=== PATIENT | female | born 1970 | race Two or more races ===

== ENCOUNTER 2017-04-01 11:40 | Inpatient (IN) | payer OTHER ==
[~2017-04-01] VITALS: Ht 157.5 cm; Wt 79.4 kg
[2017-04-01] MEDS ORDERED: HYDROCODONE/APAP 5/325MG 1 EACH TABLET ONE (12:43)
[2017-04-01] MEDS ORDERED: PHENYTOIN EXTENDED RELEASE 100 MG CAPSULE PO ONE ×2 (12:43→13:00)
[2017-04-01] MEDS ORDERED: LEVETIRACETAM (250 MG) 250 MG TABLET PO ONE ×2 (12:43→13:00)
[2017-04-01] MEDS ORDERED: HYDROCODONE/APAP 5/325MG 1 EACH TABLET PO ONE (13:00)
[2017-04-01] MEDS ORDERED: HYDR-552 PO (13:19)
[2017-04-01] MEDS ORDERED: DOCU-25 PO (13:19)
[2017-04-01] MEDS ORDERED: ARIP5TAB4 PO (13:19)
[2017-04-01] MEDS ORDERED: ENOX40DI SQ (13:19)
[2017-04-01] MEDS ORDERED: PHEN100C4 PO (13:19)
[2017-04-01] MEDS ORDERED: MULT-213 PO (13:19)
[2017-04-01] MEDS ORDERED: BISA10SU8 RC (13:19)
[2017-04-01] MEDS ORDERED: LEVE500T9 PO (13:19)
[2017-04-01] MEDS ORDERED: ASCO500T9 PO (13:19)
[2017-04-01] MEDS ORDERED: ACET-868 PO (13:19)
[2017-04-01] MEDS ORDERED: AMIN30LI2 PO (13:19)
[2017-04-01] MEDS ORDERED: CHOL200026 PO (13:19)
--- NOTE | 2017-04-01 13:32 | NUR ---
report given to stephan alfaro
[2017-04-01 13:50] VITALS: BP 93/55
--- NOTE | 2017-04-01 13:50 | NUR ---
RN NOTES RECEIVED PT FROM ER IN ROOM 119-2, PT IS A/Ox4, RESPIRATION EVEN AND UNLABORED, ON RA , NO DISTRESS NOTED AT THIS TIME , L FOOT IV SITE G 18 CDI, NO MOVEMENT NOTED ON ROSA MARIA.LOWER EXTREMITIES , SR UP x3, CALL LIGHT WITHIN EASY REACH , VSS STABLE , SACRAL REDNESS NOTED, WOUND CONSULT ORDERED, SKIN PHOTO TAKEN, CONTINUE TO MONITOR CLOSELY .
[2017-04-01 14:00] VITALS: BP 93/55
[2017-04-01] MEDS ORDERED: BISACODYL SUPP (10 MG) 10 MG/SUPP.RECT SUPP.RECT RC PRN (16:30)
[2017-04-01] MEDS ORDERED: MAGNESIUM HYDROXIDE 30 ML UDC PO PRN (16:30)
[2017-04-01] MEDS ORDERED: HYDROCODONE/APAP 5/325MG 1 EACH TABLET PO PRN (16:30)
[2017-04-01] MEDS ORDERED: MAG HYDROX/AL HYDROX/SIMETH 30 ML UDC PO PRN (16:30)
[2017-04-01] MEDS ORDERED: ONDANSETRON HCL/PF 4 MG/2 ML VIAL IVP PRN (16:30)
[2017-04-01] MEDS ORDERED: Z GUARD REMEDY 2 OZ OINT TP PRN (16:30)
[2017-04-01] MEDS ORDERED: ACETAMINOPHEN 325 MG TABLET PO PRN ×2 (16:30)
[2017-04-01] MEDS: ENOXAPARIN SODIUM 40 MG/0.4 ML DISP.SYRIN SQ SCH (16:57)
[2017-04-01] MEDS: PHENYTOIN EXTENDED RELEASE 100 MG CAPSULE PO SCH (16:59)
[2017-04-01] MEDS: DOCUSATE SODIUM 100 MG CAPSULE PO SCH (16:59)
[2017-04-01] MEDS: IV NS 0.9% 1,000 ML IV PRN (17:00)
--- NOTE | 2017-04-01 18:51 | NUR ---
RN NOTES PT STABLE , NO DISTRESS NOTE, WILL ENDORSE TO CAREER PLACEMENT SPECIALIST NURSE FOR RUPAL,
[2017-04-01 20:00] VITALS: BP 87/62
[2017-04-01] MEDS: LEVETIRACETAM (250 MG) 250 MG TABLET PO SCH (21:54)
[2017-04-01] MEDS: ZOLPIDEM TARTRATE 5 MG TABLET PO PRN (21:55)
[2017-04-01] MEDS: PROSOURCE / PROSTAT (PYXIS) 30 ML UDC PO SCH (21:55)
[2017-04-01] MEDS ORDERED: DOCUSATE SODIUM 100 MG CAPSULE PO SCH (22:00)
[2017-04-02 04:00] VITALS: BP 80/42
[2017-04-02] MEDS: IV NS 0.9% 1,000 ML IV PRN ×2 (04:11→23:31)
[2017-04-02 07:05] LABS: BASOPHILS % (AUTO) 0.4 % (0.0-2.0); EOSINOPHILS # (AUTO) 0.2 /CMM (0.0-0.7); EOSINOPHILS % (AUTO) 4.1 % (0.0-6.0); HEMATOCRIT 32 % (33-45); HEMOGLOBIN 10.8 g/dL (11.5-14.8); LYMPHOCYTES % (AUTO) 47.1 % (20.0-44.0); MEAN CORPUSCULAR HEMOGLOBIN 32 PG (26.0-33.0); MEAN CORPUSCULAR HGB CONC 34 g/dl (31.0-36.0); MEAN CORPUSCULAR VOLUME 94 fL (82-100); MONOCYTES # (AUTO) 0.3 /CMM (0.1-1.30); MONOCYTES % (AUTO) 7.4 % (2.0-12.0); NEUTROPHILS # (AUTO) 1.7 /CMM (1.8-8.9); PLATELET COUNT (AUTO) 182 /CMM (150-450); RDW COEFFICIENT OF VARIATION 13.8 (11.5-15.0); RED BLOOD CELL COUNT(AUTO) 3.43 MIL/uL (4.0-5.2); WHITE BLOOD COUNT (AUTO) 4.2 K/uL (4.3-11.0)
[2017-04-02 07:19] LABS: ALBUMIN 2.3 g/dL (3.4-5.0); BILIRUBIN,TOTAL 0.2 mg/dL (0.2-1.0); CALCIUM, SERUM 8.1 mg/dL (8.5-10.1); CREATININE 0.4 mg/dL (0.6-1.3); PHOSPHORUS 3.6 mg/dL (2.5-4.9); POTASSIUM 3.3 mmol/L (3.5-5.1); TOTAL PROTEIN, SERUM 6.1 g/dL (6.4-8.2)
[2017-04-02 07:28] LABS: INR 1.11 (0.87-1.13); PROTHROMBIN TIME 11.6 SECS (9.5-12.7)
[2017-04-02 08:00] VITALS: BP 104/90
[2017-04-02 08:26] LABS: MAGNESIUM 1.2 mg/dL (1.8-2.4)
[2017-04-02] MEDS: CHOLECALCIFEROL 1,000 UNIT TABLET (VIT D3) PO SCH (08:37)
[2017-04-02] MEDS: LEVETIRACETAM (250 MG) 250 MG TABLET PO SCH ×2 (08:37→21:00)
[2017-04-02] MEDS: ARIPIPRAZOLE 5 MG TABLET PO SCH (08:37)
[2017-04-02] MEDS: ASCORBIC ACID 500 MG TABLET PO SCH (08:37)
[2017-04-02] MEDS: MULTIVIT, IRON, MIN NO. 8, FA 1 TAB PO SCH (08:37)
[2017-04-02] MEDS: PHENYTOIN EXTENDED RELEASE 100 MG CAPSULE PO SCH ×2 (08:38→16:12)
[2017-04-02] MEDS: DOCUSATE SODIUM 100 MG CAPSULE PO SCH ×2 (08:38→16:18)
[2017-04-02] MEDS: HYDROCODONE/APAP 5/325MG 1 EACH TABLET PO PRN ×2 (08:42→14:30)
[2017-04-02] MEDS: Magnesium 1GM/D5W 100ML PREMIX 100 ML IV SCH ×4 (10:10→13:50)
[2017-04-02] MEDS ORDERED: Magnesium 1GM/D5W 100ML PREMIX 100 ML IV SCH (10:30)
[2017-04-02] MEDS ORDERED: POTASSIUM CHLORIDE 20 MEQ TAB.PRT.SR PO ONE (10:30)
--- NOTE | 2017-04-02 14:39 | NUR ---
WOUND CARE CONSULT: PT PRESENTS WITH SCARRING TO SACRAL AREA (FRAGILE) AND SCAR TO LEFT LATERAL ANKLE, PRESENT ON ADMISSION. PT IS INCONTINENT. FIRST STEP MATTRESS ORDERED. ALL SKIN PROTECTION MEASURES IN PLACE AND DISCUSSED WITH NURSING STAFF. WILL SEE PRN. SABILLON IN AGREEMENT WITH PLAN OF CARE.
[2017-04-02] MEDS ORDERED: MINERAL OIL/PETROLATUM,WHITE 120 GM JAR TP PRN (15:00)
[2017-04-02 16:00] VITALS: BP 90/63
[2017-04-02] MEDS: ZOLPIDEM TARTRATE 5 MG TABLET PO PRN (21:01)
[2017-04-02] MEDS: PROSOURCE / PROSTAT (PYXIS) 30 ML UDC PO SCH (21:02)
[2017-04-02] MEDS: ENOXAPARIN SODIUM 40 MG/0.4 ML DISP.SYRIN SQ SCH (21:02)
[2017-04-02 21:04] LABS: APPEARANCE,URINE TURBID (CLEAR); BILIRUBIN,URINE NEGATIVE (NEGATIVE); BLOOD, URINE NEGATIVE Ery/uL (NEGATIVE); COLOR,URINE YELLOW (YELLOW); KETONES,URINE NEGATIVE (NEGATIVE); LEUKOCYTE ESTERASE ,URINE 2+ (NEGATIVE); NITRITE, URINE POSITIVE (NEGATIVE); PROTEIN,URINE NEGATIVE (NEGATIVE); UGLUCOSE NEGATIVE (NEGATIVE); UROBILINOGEN,URINE 0.2 EU/dL (0.2)
[2017-04-02 21:10] LABS: BACTERIA,URINE Many /HPF (None Seen); RBC,URINE 0-2 /HPF (0-2); SQUAMOUS EPITHELIAL CELL,UR Few /HPF (None Seen)
[2017-04-03 04:00] VITALS: BP 111/65
[2017-04-03 06:58] LABS: CALCIUM, SERUM 8.8 mg/dL (8.5-10.1); CREATININE 0.4 mg/dL (0.6-1.3); MAGNESIUM 1.4 mg/dL (1.8-2.4); PHOSPHORUS 3.5 mg/dL (2.5-4.9); POTASSIUM 3.7 mmol/L (3.5-5.1)
[2017-04-03 08:00] VITALS: BP 94/43
[2017-04-03] MEDS: ARIPIPRAZOLE 5 MG TABLET PO SCH (08:53)
[2017-04-03] MEDS: CHOLECALCIFEROL 1,000 UNIT TABLET (VIT D3) PO SCH (08:53)
[2017-04-03] MEDS: LEVETIRACETAM (250 MG) 250 MG TABLET PO SCH ×2 (08:53→21:54)
[2017-04-03] MEDS: MULTIVIT, IRON, MIN NO. 8, FA 1 TAB PO SCH (08:53)
[2017-04-03] MEDS: ASCORBIC ACID 500 MG TABLET PO SCH (08:54)
[2017-04-03] MEDS: PHENYTOIN EXTENDED RELEASE 100 MG CAPSULE PO SCH ×2 (08:54→18:32)
[2017-04-03] MEDS: DOCUSATE SODIUM 100 MG CAPSULE PO SCH ×2 (08:54→18:32)
[2017-04-03] MEDS: Magnesium 1GM/D5W 100ML PREMIX 100 ML IV SCH ×3 (14:26→18:32)
[2017-04-03] MEDS: HYDROCODONE/APAP 5/325MG 1 EACH TABLET PO PRN ×2 (14:39→21:55)
[2017-04-03 16:00] VITALS: BP_SYST 88; BP_SYST 94; BP_DIAS 43; BP_DIAS 48
--- NOTE | 2017-04-03 19:12 | NUR ---
RN CLOSING NOTE PT AAO4. NORCO FOR BACK PAIN X 1. MAG REPLETED IV. GOOD APPETITE. LFT FT 20G PATENT INFUSIN GNS @75ML. CALL LIGHT IN REACH. BED IN LOW LOCKED POSITION. WILL ENDORSE REPORT TO ROSELINE SILVA.
[2017-04-03] MEDS: ZOLPIDEM TARTRATE 5 MG TABLET PO PRN (21:54)
[2017-04-03] MEDS: PROSOURCE / PROSTAT (PYXIS) 30 ML UDC PO SCH (21:56)
[2017-04-03] MEDS: ENOXAPARIN SODIUM 40 MG/0.4 ML DISP.SYRIN SQ SCH (21:57)
[2017-04-03 23:07] VITALS: BP 116/60
[2017-04-04 04:00] VITALS: BP 78/44
--- NOTE | 2017-04-04 06:54 | NUR ---
RN CLOSING NOTE PT REMAINS IN NO ACUTE DISTRESS IN BED. PT DID NOT HAVE ANY SIGNIFICANT CHANGE IN CONDITION DURING SHIFT. ALL NEEDS MET, ALL ORDERS CARRIED OUT. WILL ENDORSE CARE TO AM RN FOR CONTINUITY OF CARE.
[2017-04-04 07:55] LABS: CALCIUM, SERUM 8.8 mg/dL (8.5-10.1); CREATININE 0.4 mg/dL (0.6-1.3); MAGNESIUM 1.7 mg/dL (1.8-2.4); POTASSIUM 3.9 mmol/L (3.5-5.1)
[2017-04-04 08:00] VITALS: BP 110/44
[2017-04-04] MEDS: LEVETIRACETAM (250 MG) 250 MG TABLET PO SCH ×2 (09:12→21:17)
[2017-04-04] MEDS: ASCORBIC ACID 500 MG TABLET PO SCH (09:12)
[2017-04-04] MEDS: PHENYTOIN EXTENDED RELEASE 100 MG CAPSULE PO SCH ×2 (09:12→17:08)
[2017-04-04] MEDS: ARIPIPRAZOLE 5 MG TABLET PO SCH (09:12)
[2017-04-04] MEDS: MULTIVIT, IRON, MIN NO. 8, FA 1 TAB PO SCH (09:13)
[2017-04-04] MEDS: DOCUSATE SODIUM 100 MG CAPSULE PO SCH ×2 (09:13→17:08)
[2017-04-04] MEDS: CHOLECALCIFEROL 1,000 UNIT TABLET (VIT D3) PO SCH (09:13)
[2017-04-04] MEDS: Magnesium 1GM/D5W 100ML PREMIX 100 ML IV SCH ×3 (12:16→13:36)
[2017-04-04 16:00] VITALS: BP 78/44
[2017-04-04 17:00] VITALS: BP 101/48
[2017-04-04] MEDS: HYDROCODONE/APAP 5/325MG 1 EACH TABLET PO PRN (17:09)
[2017-04-04] MEDS: CEFTRIAXONE 1 G in IV D5W 50 ML IV SCH (18:13)
[2017-04-04 20:00] VITALS: BP 95/51
--- NOTE | 2017-04-04 20:00 | NUR ---
RN NOTES RECEIVED PATIENT AWAKE IN BED WITH NO DISTRESS NOTED. BREATHING EVEN AND UNLABORED. ON ROOM AIR WITH O2SAT OF 97%. ALERT AND ORIENTED. VERBALLY ABLE TO COMMUNICATE NEEDS. VITAL SIGNS WNL. WILL CONTINUE TO MONITOR.
[2017-04-04] MEDS: IV NS 0.9% 1,000 ML IV PRN (21:16)
[2017-04-04] MEDS: ENOXAPARIN SODIUM 40 MG/0.4 ML DISP.SYRIN SQ SCH (21:17)
[2017-04-04] MEDS: PROSOURCE / PROSTAT (PYXIS) 30 ML UDC PO SCH (21:18)
[2017-04-04] MEDS: ZOLPIDEM TARTRATE 5 MG TABLET PO PRN (21:25)
[2017-04-05 04:00] VITALS: BP 112/66
--- NOTE | 2017-04-05 07:30 | NUR ---
RN OPENING NOTES REPORT RECV'D FROM ROSELINE RN. PT AAO4. HOB ELEVATED. HERE FOR RESP DISTRESS SECONDARY TO FIRES. PARAPLEGIA. L ANKLE 20G PIV NS RUNNING @75ML/HR. CEFTRIAXONE FOR UTI. AWAITING PLACEMENT. CALL LIGHT IN REACH. BED IN LOW LOCKED POSITION. WILL CONT TO MONITOR.
[2017-04-05 08:00] VITALS: BP_SYST 131; BP_SYST 95; BP_DIAS 51; BP_DIAS 83
[2017-04-05] MEDS: LEVETIRACETAM (250 MG) 250 MG TABLET PO SCH ×2 (09:01→21:27)
[2017-04-05] MEDS: ASCORBIC ACID 500 MG TABLET PO SCH (09:01)
[2017-04-05] MEDS: MULTIVIT, IRON, MIN NO. 8, FA 1 TAB PO SCH (09:01)
[2017-04-05] MEDS: ARIPIPRAZOLE 5 MG TABLET PO SCH (09:01)
[2017-04-05] MEDS: PHENYTOIN EXTENDED RELEASE 100 MG CAPSULE PO SCH ×2 (09:01→16:18)
[2017-04-05] MEDS: CHOLECALCIFEROL 1,000 UNIT TABLET (VIT D3) PO SCH (09:01)
[2017-04-05] MEDS: DOCUSATE SODIUM 100 MG CAPSULE PO SCH ×2 (09:01→16:19)
[2017-04-05] MEDS: IV NS 0.9% 1,000 ML IV PRN (10:57)
[2017-04-05] MEDS ORDERED: SULF1TAB48 PO (13:06)
[2017-04-05 16:00] VITALS: BP 112/66
[2017-04-05] MEDS: CEFTRIAXONE 1 G in IV D5W 50 ML IV SCH (16:19)
--- NOTE | 2017-04-05 18:42 | NUR ---
RN CLOSING NOTES BED IN LOW LOCKED POSITION. PT STABLE. NS INFUSING @75ML/HR LEFT LOWER LEG. DRSG CHANGE OF COCCYX NO COMPLICATIONS. PLAN TO HAVE PT RETURN TO [facility] TOMORROW. FACILITY UNABLE TO ACCOMODATE PT TODAY. JUSTICE LIGHT IN REACH. WILL ENDORSE TO ROSELINE RN.
[2017-04-05 20:00] VITALS: BP 112/66
[2017-04-05] MEDS: ZOLPIDEM TARTRATE 5 MG TABLET PO PRN (21:27)
[2017-04-05] MEDS: ENOXAPARIN SODIUM 40 MG/0.4 ML DISP.SYRIN SQ SCH (21:27)
--- NOTE | 2017-04-05 22:26 | NUR ---
RN NOTES RECEIVED PATIENT AWAKE IN BED WITH NO DISTRESS NOTED. BREATHING EVEN AND UNLABORED. NO COMPLAINT OF PAIN OR DISCOMFORT. ALERT AND ORIENTED. RIGHT FOOT PIV LINE PATENT ATTACHED TO NS @75CC/ML TOLERATING WELL. ABLE TO COMMUNICATE NEEDS VERBALLY. KEPT CLEAN AND DRY. WILL CONTINUE TO MONITOR.
[2017-04-05] MEDS: PROSOURCE / PROSTAT (PYXIS) 30 ML UDC PO SCH (22:32)
[2017-04-06] MEDS: IV NS 0.9% 1,000 ML IV PRN ×2 (00:25→17:10)
--- NOTE | 2017-04-06 06:37 | NUR ---
RN CLOSING NOTES PATIENT IN BED, NO DISTRESS OR COMPLAINT OF PAIN. VITAL SIGNS WITHIN NORMAL LIMITS. BREATHING EVEN AND UNLABORED. NEEDS ATTENDED. WILL ENDORSE TO AM SHIFT FOR CONTINUITY OF CARE.
--- NOTE | 2017-04-06 08:00 | NUR ---
RN NOTES RECEIVED PATIENT IN THE BED A/A/O X 4, PATIENT TOTAL CARE, HOB ELEVATED, NO RESPIRATORY DISTRESS, IV LINE LEFT FOOT NS AT 75 ML/HR, NO C/O PAIN AT THIS TIME, BUT PATIENT ABLE TO EAT SELF. ENCOURAGED TO INCREASE FLUID INTAKE, V/S STABLE. ENCOURAGED TO INCREASE FLUID INTAKE. SCHEDULED MEDICATION ADMINISTERED, ASSIST TURN AND REPOSITION Q 2 HR, CALL LIGHT WITHIN TO REACH, SAFETY PRECAUTION MAINTAINED ALL THE TIME.
[2017-04-06] MEDS: CHOLECALCIFEROL 1,000 UNIT TABLET (VIT D3) PO SCH (11:26)
[2017-04-06] MEDS: ASCORBIC ACID 500 MG TABLET PO SCH (11:26)
[2017-04-06] MEDS: LEVETIRACETAM (250 MG) 250 MG TABLET PO SCH ×2 (11:26→21:00)
[2017-04-06] MEDS: ARIPIPRAZOLE 5 MG TABLET PO SCH (11:27)
[2017-04-06] MEDS: MULTIVIT, IRON, MIN NO. 8, FA 1 TAB PO SCH (11:27)
[2017-04-06] MEDS: DOCUSATE SODIUM 100 MG CAPSULE PO SCH ×2 (11:27→17:03)
[2017-04-06] MEDS: PHENYTOIN EXTENDED RELEASE 100 MG CAPSULE PO SCH ×2 (11:27→17:03)
[2017-04-06] MEDS: HYDROCODONE/APAP 5/325MG 1 EACH TABLET PO PRN ×2 (11:39→17:12)
--- NOTE | 2017-04-06 11:39 | NUR ---
RN NOTES ADMINISTERED NARCO 5/325 MG PO PRN FOR RIGHT LOWER BACK PAIN 7/10 PER PAIN SLIDING SCALE, V/S TAKEN BP -112/59, P-70, ENCOURAGED TO INCREASE FLUID INTAKE, CALL LIGHT WITHIN TO REACH, CONTINUED MONITORING. ASSIST PATIENT TURN AND REPOSITION Q 2 HR.
[2017-04-06] MEDS ORDERED: Magnesium 1GM/D5W 100ML PREMIX PIGGYBACK IV ONE (12:30)
[2017-04-06] MEDS: Magnesium 1GM/D5W 100ML PREMIX 100 ML IV SCH ×2 (12:48→14:03)
--- NOTE | 2017-04-06 13:00 | NUR ---
RN NOTES PATIENT HAS NO C/O PAIN AT THIS TIME, MEDICATION WERE ADMINISTERED EFFECTIVE, IV INFUSING NS AT 75 ML/HR, ASSIST TURN AND REPOSITION Q 2 HR, NEEDS ATTENDED AND ANTICIPATED, CALL LIGHT WITHIN TO REACH, SAFETY PRECAUTION MAINTAINED ALL THE TIME.
[2017-04-06 15:59] VITALS: BP 133/59
[2017-04-06] MEDS: CEFTRIAXONE 1 G in IV D5W 50 ML IV SCH (17:03)
--- NOTE | 2017-04-06 17:13 | NUR ---
RN NOTES ADMINISTERED NARCO 5/325 MG PO PRN RIGHT LOWER BACK 11/04 , PER PATIENT REQUEST, ALSO ADMINISTERED SCHEDULED MEDICATION, V/S TAKEN STABLE, , INFUSING IV NS @ 75 ML /HR LEFT FOOT, ASSIST TURN AND REPOSITION Q 2 HR, DRESSING CHANGED, CALL LIGHT WITHIN TO REACH, SAFETY PRECAUTION MAINTAINED ALL THE TIME, PATIENT KCI MATTRESS, CONTINUED MONITORING.
--- NOTE | 2017-04-06 19:03 | NUR ---
RN NOTES PATIENT IN THE BED WATCHING TV, NO C/O PAIN AT THIS TIME, MEDICATION WERE ADMINISTERED FOR PAIN EFFECTIVE, INFUSING IV LEFT FOOT NS-75 ML/R, CALL LIGHT WITHIN TO REACH. NEEDS ATTENDED AND ANTICIPATED. ENDORSED ONCOMING NURSE FOR CONTINUATION OF CARE.
--- NOTE | 2017-04-06 19:30 | NUR ---
RN NOTES RECEIVED PATIENT IN THE BED A/O X 4. RA SAT. 95 %. NO S/S OF ANY RESPIRATORY DISTRESS NOTED. PATIENT IS TOTAL DEPENDENT OF ADL'S. IV LINE LEFT FOOT PATENT AND INTACT W/ NO S/S OF INFECTION/INFILTRATION NOTED. NS AT 75 ML/HR, NO C/O PAIN AT THIS TIME, BUT PATIENT ABLE TO EAT SELF. ENCOURAGED TO INCREASE FLUID INTAKE, V/S STABLE. ENCOURAGED TO INCREASE FLUID INTAKE. PT. REFUSED MEDS STATED THAT SHE WILL GET IT AT HER GROUP HOME. ASSIST TURN AND REPOSITION Q 2 HR, CALL LIGHT WITHIN TO REACH, SAFETY PRECAUTION MAINTAINED ALL THE TIME.
[2017-04-06] MEDS: ENOXAPARIN SODIUM 40 MG/0.4 ML DISP.SYRIN SQ SCH (21:00)
== END 2017-04-06 21:05 | DRG 816 ==
LOC: ER 11:42 → MEDSG1 13:46
PROVIDERS: ADMIT Internal Medicine; ATTEND Internal Medicine
DX: T59.811A Toxic effect of smoke, accidental (unintentional), initial encounter (principal); J96.01 Acute respiratory failure with hypoxia; G93.41 Metabolic encephalopathy; L89.159 Pressure ulcer of sacral region, unspecified stage; G82.20 Paraplegia, unspecified; J70.5 Respiratory conditions due to smoke inhalation; Y92.129 Unspecified place in nursing home as the place of occurrence of the external cause; G40.909 Epilepsy, unspecified, not intractable, without status epilepticus; E78.5 Hyperlipidemia, unspecified; I10 Essential (primary) hypertension; J45.909 Unspecified asthma, uncomplicated; Z86.718 Personal history of other venous thrombosis and embolism; Z88.5 Allergy status to narcotic agent; Z79.899 Other long term (current) drug therapy
CPT/HCPCS: 36415; 71010-TC; 80048-TC; 80053-TC; 80061-TC; 81000-TC; 82553-TC; 82746; 83540-TC; 83735-TC; 84100-TC; 85025-TC; 85652-TC; 85730-TC; 87081-TC; 87086-TC; 87186-TC; 93307-TC; A4606; J0696; J1650; J3475; J3490; J7030; J7060; Z7610